=== PATIENT | male | born 1965 | race African-American/Black ===

== ENCOUNTER 2017-10-24 18:37 | Emergency (ER) | payer MEDICAID ==
[~2017-10-24] VITALS: Ht 177.8 cm; Wt 74.8 kg
[~2017-10-24 18:37] MED LIST: BENA20TA9; DIPH50CA37; HYDR12.5
--- NOTE | 2017-10-24 18:50 | NUR ---
PT AMBULATORY TO ER BED 13 WAS SENT BY [facility]RGENT [facility]ARE FOR POSSIBLE DIVERTICULITIS. C/O LLQ ABDOMINAL PAIN X 1 WEEK. DENIES N/V/D. PLACED ON MONITOR. AWAITING MD MOSELEY.
--- NOTE | 2017-10-24 19:08 | NUR ---
KATHY COON AT BEDSIDE FOR EVAL.
--- NOTE | 2017-10-24 19:17 | NUR ---
IV LINE STARTED BLOOD DRAWN AND SENT TO LAB.
[2017-10-24 19:23] LABS: BASOPHILS % (AUTO) 0.8 % (0.0-2.0); EOSINOPHILS % (AUTO) 1.5 % (0.0-6.0); HEMATOCRIT 49 % (39-51); HEMOGLOBIN 16.4 g/dL (13.5-17.5); LYMPHOCYTES # (AUTO) 2.6 /CMM (0.8-4.8); LYMPHOCYTES % (AUTO) 47.6 % (20.0-44.0); MEAN CORPUSCULAR HEMOGLOBIN 29 PG (26.0-33.0); MEAN CORPUSCULAR HGB CONC 33 g/dl (31.0-36.0); MEAN CORPUSCULAR VOLUME 87 fL (80-96); MONOCYTES # (AUTO) 0.5 /CMM (0.1-1.30); MONOCYTES % (AUTO) 10.4 % (2.0-12.0); NEUTROPHILS # (AUTO) 2.1 /CMM (1.8-8.9); NEUTROPHILS % (AUTO) 39.7 % (43.0-81.0); PLATELET COUNT (AUTO) 203 /CMM (150-450); RDW COEFFICIENT OF VARIATION 12.8 (11.5-15.0); RED BLOOD CELL COUNT(AUTO) 5.69 MIL/uL (4.5-6.0); WHITE BLOOD COUNT (AUTO) 5.3 K/uL (4.3-11.0)
[2017-10-24] MEDS ORDERED: IV NS 0.9% 1,000 ML BAG IV ONE ×2 (19:30→20:00)
[2017-10-24 19:32] LABS: CALCIUM, SERUM 9.5 mg/dL (8.5-10.1); CREATININE 1.4 mg/dL (0.6-1.3); POTASSIUM 3.3 mmol/L (3.5-5.1)
[2017-10-24 19:38] LABS: ALBUMIN 3.9 g/dL (3.4-5.0); BILIRUBIN,DIRECT 0.2 mg/dL (0.0-0.2); BILIRUBIN,TOTAL 0.8 mg/dL (0.2-1.0)
[2017-10-24] MEDS ORDERED: IOHEXOL-300 100 ML VIAL IV ONE (19:47)
[2017-10-24 19:49] LABS: APPEARANCE,URINE Clear (CLEAR); BILIRUBIN,URINE Negative (NEGATIVE); BLOOD, URINE Negative Ery/uL (NEGATIVE); COLOR,URINE Yellow (YELLOW); KETONES,URINE Negative (NEGATIVE); LEUKOCYTE ESTERASE ,URINE Negative (NEGATIVE); NITRITE, URINE Negative (NEGATIVE); PROTEIN,URINE Negative (NEGATIVE); UGLUCOSE Negative (NEGATIVE); UROBILINOGEN,URINE 0.2 EU/dL (0.2)
--- NOTE | 2017-10-24 21:41 | NUR ---
Patient discharged to home in stable condition. Written and verbal after care instructions given. Patient verbalizes understanding of instruction.Patient discharged to home in stable condition. Written and verbal after care instructions given. Patient verbalizes understanding of instruction.
[2017-10-24 21:42] VITALS: BP 121/77
== END 2017-10-24 21:42 | disposition home or self-care (01) ==
LOC: ER 18:40
DX: K59.09 Other constipation (principal); I10 Essential (primary) hypertension; G89.29 Other chronic pain
CPT/HCPCS: 36415; 80048-TC; 80076-TC; 81000-TC; 83690-TC; 85025-TC; A4606; J7030; Q9967; Z7610

== ENCOUNTER 2017-12-29 14:45 | Emergency (ER) | payer MEDICAID ==
[~2017-12-29] VITALS: Ht 177.8 cm; Wt 74.8 kg
[2017-12-29 15:27] LABS: BASOPHILS # (AUTO) 0.1 /CMM (0.0-0.2); EOSINOPHILS % (AUTO) 1.7 % (0.0-6.0); HEMATOCRIT 46 % (39-51); HEMOGLOBIN 14.9 g/dL (13.5-17.5); LYMPHOCYTES # (AUTO) 1.8 /CMM (0.8-4.8); MEAN CORPUSCULAR HEMOGLOBIN 29 PG (26.0-33.0); MEAN CORPUSCULAR HGB CONC 33 g/dl (31.0-36.0); MEAN CORPUSCULAR VOLUME 88 fL (80-96); MONOCYTES # (AUTO) 0.4 /CMM (0.1-1.30); NEUTROPHILS # (AUTO) 2.7 /CMM (1.8-8.9); NEUTROPHILS % (AUTO) 53.3 % (43.0-81.0); PLATELET COUNT (AUTO) 232 /CMM (150-450); RDW COEFFICIENT OF VARIATION 13.3 (11.5-15.0); RED BLOOD CELL COUNT(AUTO) 5.21 MIL/uL (4.5-6.0); WHITE BLOOD COUNT (AUTO) 5.1 K/uL (4.3-11.0)
[2017-12-29 15:35] LABS: CALCIUM, SERUM 8.4 mg/dL (8.5-10.1); CARBON DIOXIDE 35 mmol/L (21-32); CHLORIDE 103 mmol/L (98-107); CREATININE 1.1 mg/dL (0.6-1.3); GLUCOSE 115 mg/dL (74-106); POTASSIUM 3.2 mmol/L (3.5-5.1); SODIUM SERUM 137 mmol/L (136-145); UREA NITROGEN, BLOOD 15 mg/dL (7-18)
[2017-12-29 15:43] LABS: TROPONIN I < 0.017 ng/mL (0.00-0.056)
[2017-12-29 15:47] LABS: ALANINE AMINOTRANSFERASE 30 U/L (12-78); ALBUMIN 3.3 g/dL (3.4-5.0); ALKALINE PHOSPHATASE 54 U/L (46-116); ASPARTATE AMINOTRANSFERASE 20 U/L (15-37); BILIRUBIN,DIRECT 0.1 mg/dL (0.0-0.2); BILIRUBIN,TOTAL 0.5 mg/dL (0.2-1.0); LIPASE 142 U/L (73-393); TOTAL PROTEIN, SERUM 5.9 g/dL (6.4-8.2)
[2017-12-29 16:52] VITALS: BP 110/78
--- NOTE | 2017-12-29 16:52 | NUR ---
Patient discharged to home in stable condition. Written and verbal after care instructions given. Patient verbalizes understanding of instruction.
== END 2017-12-29 16:53 | disposition home or self-care (01) ==
LOC: ER 14:48
DX: R10.13 Epigastric pain (principal); R42 Dizziness and giddiness; I10 Essential (primary) hypertension; G89.29 Other chronic pain; Z87.891 Personal history of nicotine dependence
CPT/HCPCS: 36415; 71045; 80048; 80076; 83690; 84484; 85025; 93005; 99285; A4606; Z7610

== ENCOUNTER 2018-04-30 14:23 | Emergency (ER) | payer MEDICAID ==
[~2018-04-30] VITALS: Ht 177.8 cm; Wt 73.9 kg
--- NOTE | 2018-04-30 14:35 | NUR ---
PT BIB SELF C/O Abdominal/epigastric pain "started couple days ago. Hx hernia surg 1mo ago", PT IS AAOX4, NOT IN RESPIRATORY DISTRESS, V/S STABLE, KEPT RESTED AND COMFORTABLE.
--- NOTE | 2018-04-30 14:49 | NUR ---
LABS DRAWNED AND SENT TO LAB. AWAITING RESULTS.
[2018-04-30] MEDS ORDERED: MORPHINE SULFATE INJ 2 MG/ML DISP.SYRIN IV ONE (15:00)
[2018-04-30] MEDS ORDERED: FAMOTIDINE/PF INJ 20 MG/2 ML VIAL IV ONE ×2 (15:00→15:09)
[2018-04-30] MEDS ORDERED: PANTOPRAZOLE 40 MG VIAL IV ONE (15:00)
[2018-04-30] MEDS ORDERED: ONDANSETRON HCL/PF 4 MG/2 ML VIAL IVP ONE (15:00)
[2018-04-30] MEDS ORDERED: IV NS 0.9% 1,000 ML BAG IV ONE (15:00)
[2018-04-30] MEDS ORDERED: MAG HYDROX/AL HYDROX/SIMETH 30 ML UDC PO ONE (15:00)
[2018-04-30 15:06] LABS: BASOPHILS % (AUTO) 0.4 % (0.0-2.0); EOSINOPHILS % (AUTO) 0.3 % (0.0-6.0); HEMATOCRIT 51 % (39-51); HEMOGLOBIN 16.9 g/dL (13.5-17.5); LYMPHOCYTES % (AUTO) 29.9 % (20.0-44.0); MEAN CORPUSCULAR HGB CONC 33 g/dl (31.0-36.0); MEAN CORPUSCULAR VOLUME 88 fL (80-96); MONOCYTES # (AUTO) 0.9 /CMM (0.1-1.30); MONOCYTES % (AUTO) 9.4 % (2.0-12.0); PLATELET COUNT (AUTO) 263 /CMM (150-450); RED BLOOD CELL COUNT(AUTO) 5.85 MIL/uL (4.5-6.0); WHITE BLOOD COUNT (AUTO) 9.9 K/uL (4.3-11.0)
[2018-04-30] MEDS ORDERED: ONDANSETRON HCL/PF 4 MG/2 ML VIAL ONE (15:08)
[2018-04-30] MEDS ORDERED: MAG HYDROX/AL HYDROX/SIMETH 30 ML UDC ONE (15:08)
[2018-04-30] MEDS ORDERED: PANTOPRAZOLE 40 MG VIAL ONE (15:08)
[2018-04-30] MEDS ORDERED: FENTANYL PF 100MCG/2ML AMPUL ONE ×2 (15:15→17:13)
[2018-04-30 15:29] LABS: CALCIUM, SERUM 9.5 mg/dL (8.5-10.1); CREATININE 1.1 mg/dL (0.6-1.3)
[2018-04-30] MEDS ORDERED: FENTANYL PF 100MCG/2ML AMPUL IV ONE ×2 (15:30→17:30)
[2018-04-30 15:34] LABS: ALBUMIN 3.9 g/dL (3.4-5.0); BILIRUBIN,DIRECT 0.1 mg/dL (0.0-0.2); BILIRUBIN,TOTAL 0.7 mg/dL (0.2-1.0); TOTAL PROTEIN, SERUM 7.4 g/dL (6.4-8.2)
[2018-04-30] MEDS ORDERED: IOHEXOL-300 100 ML VIAL IV ONE (15:47)
[2018-04-30] MEDS ORDERED: CT SWABBABLE VALVE TRANS SET 1 EA INFUS.SET MC ONE (15:47)
[2018-04-30] MEDS ORDERED: IV NS 0.9% 250 ML IV ONE (15:47)
[2018-04-30 16:19] LABS: APPEARANCE,URINE Clear (CLEAR); BILIRUBIN,URINE Negative (NEGATIVE); BLOOD, URINE Negative Ery/uL (NEGATIVE); COLOR,URINE Yellow (YELLOW); KETONES,URINE Negative (NEGATIVE); LEUKOCYTE ESTERASE ,URINE Negative (NEGATIVE); NITRITE, URINE Negative (NEGATIVE); PH,URINE 8.5 (5.0-8.0); PROTEIN,URINE 30 mg/dl (NEGATIVE); UGLUCOSE Negative (NEGATIVE); UROBILINOGEN,URINE 0.2 EU/dL (0.2)
[2018-04-30 16:28] LABS: RBC,URINE 0-2 /HPF (0-2); WBC,URINE 0-2 /HPF (0-3)
[2018-04-30 16:29] LABS: BACTERIA,URINE None seen /HPF (None Seen); SQUAMOUS EPITHELIAL CELL,UR Few /HPF (None Seen)
[2018-04-30] MEDS ORDERED: FERROUS SULFATE UDC 300 MG/5 ML UDC ONE (17:12)
[2018-04-30 17:51] VITALS: BP 135/87
== END 2018-04-30 17:52 | disposition home or self-care (01) ==
LOC: ER 14:27
DX: K29.70 Gastritis, unspecified, without bleeding (principal); E87.6 Hypokalemia; I10 Essential (primary) hypertension; Z98.890 Other specified postprocedural states; Z87.891 Personal history of nicotine dependence; Z79.899 Other long term (current) drug therapy
CPT/HCPCS: 36415; 74177; 80048; 80076; 81001; 83690; 85025; 85730; 96361; 96374; 96375; 96376; 99284; A4606; C9113; J2405; J3010 ×2; J3490; J7030; J7050; Q9967; Z7610; 81000-TC

== ENCOUNTER 2022-07-21 18:27 | Emergency (ER) | payer MEDICAID, OTHER ==
[~2022-07-21] VITALS: Ht 177.8 cm; Wt 79.4 kg
--- NOTE | 2022-07-21 18:50 | NUR ---
Patient AOx4 able to express his concerns. Patient with no signs of distress or discomfort. Discussed plan of care, pt verbalized agreement. Will continue to monitor throughout shift.
--- NOTE | 2022-07-21 19:15 | NUR ---
PT TRANSPORTED TO CT, ACCOMPANIED BY TECH
--- NOTE | 2022-07-21 19:27 | NUR ---
Handoff report given to Renee ROB. for continuity of care.
[2022-07-21 19:35] LABS: CALCIUM, SERUM 8.8 mg/dL (8.5-10.1); CREATININE 1.3 mg/dL (0.6-1.3); POTASSIUM 3.4 mmol/L (3.5-5.1)
--- NOTE | 2022-07-21 19:40 | NUR ---
PT RETURNED FROM CT, IN STABLE CONDITION
[2022-07-21 19:41] LABS: ALBUMIN 3.8 g/dL (3.4-5.0); BILIRUBIN,DIRECT 0.1 mg/dL (0.0-0.2); BILIRUBIN,TOTAL 0.7 mg/dL (0.2-1.0); TOTAL PROTEIN, SERUM 6.8 g/dL (6.4-8.2)
[2022-07-21 19:49] LABS: BASOPHILS % (AUTO) 0.2 % (0.0-2.0); HEMATOCRIT 49 % (39-51); HEMOGLOBIN 16.1 g/dL (13.5-17.5); LYMPHOCYTES # (AUTO) 0.9 K/uL (0.8-4.8); LYMPHOCYTES % (AUTO) 18.5 % (20.0-44.0); MEAN CORPUSCULAR HGB CONC 33 g/dl (31.0-36.0); MEAN CORPUSCULAR VOLUME 87 fL (80-96); MONOCYTES # (AUTO) 0.1 K/uL (0.1-1.30); MONOCYTES % (AUTO) 2.7 % (2.0-12.0); NEUTROPHILS # (AUTO) 3.6 K/uL (1.8-8.9); NEUTROPHILS % (AUTO) 78.6 % (43.0-81.0); PLATELET COUNT (AUTO) 254 K/uL (150-450); RED BLOOD CELL COUNT(AUTO) 5.68 MIL/uL (4.5-6.0); WHITE BLOOD COUNT (AUTO) 4.6 K/uL (4.3-11.0)
--- NOTE | 2022-07-21 20:09 | NUR ---
MD AT BEDSIDE FOR UPDATES
[2022-07-21] MEDS ORDERED: OMEP40CA21 PO (20:10)
[2022-07-21] MEDS ORDERED: DOCU-141 PO (20:10)
--- NOTE | 2022-07-21 20:15 | NUR ---
Patient discharged to home in stable condition. Written and verbal after care instructions given. Patient verbalizes understanding of instruction.
[2022-07-21 20:22] LABS: BILIRUBIN,URINE NEGATIVE (NEGATIVE); COLOR,URINE YELLOW (YELLOW); LEUKOCYTE ESTERASE ,URINE NEGATIVE (NEGATIVE); NITRITE, URINE NEGATIVE (NEGATIVE); PROTEIN,URINE 1+ mg/dl (NEGATIVE); UGLUCOSE NEGATIVE (NEGATIVE)
[2022-07-21 20:33] VITALS: BP 125/75
[2022-07-21 22:19] LABS: RBC,URINE 0-2 /HPF (0-2)
[2022-07-21 22:20] LABS: BACTERIA,URINE None seen /HPF (None Seen); MUCUS,URINE Few /LPF (None Seen); SQUAMOUS EPITHELIAL CELL,UR 0-2 /HPF (None Seen); WBC,URINE 0-2 /HPF (0-3)
== END 2022-07-21 20:15 | disposition home or self-care (01) ==
LOC: ER 18:33
DX: R10.32 Left lower quadrant pain (principal); I10 Essential (primary) hypertension; Z79.899 Other long term (current) drug therapy
CPT/HCPCS: 36415; 80048-TC; 80076-TC; 81001; 83690-TC; 85025-TC

== ENCOUNTER 2022-08-04 17:15 | Emergency (ER) | payer OTHER ==
[~2022-08-04] VITALS: Ht 177.8 cm; Wt 77.1 kg
[~2022-08-04 17:15] MED LIST changes: +DOCU-141 PO; +OMEP40CA21 PO
[2022-08-04 18:31] LABS: BASOPHILS % (AUTO) 0.6 % (0.0-2.0); EOSINOPHILS % (AUTO) 1.2 % (0.0-6.0); HEMATOCRIT 51 % (39-51); HEMOGLOBIN 16.2 g/dL (13.5-17.5); LYMPHOCYTES # (AUTO) 1.7 K/uL (0.8-4.8); LYMPHOCYTES % (AUTO) 25.4 % (20.0-44.0); MEAN CORPUSCULAR HGB CONC 32 g/dl (31.0-36.0); MEAN CORPUSCULAR VOLUME 88 fL (80-96); MONOCYTES # (AUTO) 0.4 K/uL (0.1-1.30); MONOCYTES % (AUTO) 6.1 % (2.0-12.0); NEUTROPHILS # (AUTO) 4.4 K/uL (1.8-8.9); NEUTROPHILS % (AUTO) 66.7 % (43.0-81.0); PLATELET COUNT (AUTO) 216 K/uL (150-450); RED BLOOD CELL COUNT(AUTO) 5.76 MIL/uL (4.5-6.0); WHITE BLOOD COUNT (AUTO) 6.7 K/uL (4.3-11.0)
[2022-08-04 18:49] LABS: CALCIUM, SERUM 9.3 mg/dL (8.5-10.1); CREATININE 1.3 mg/dL (0.6-1.3); POTASSIUM 3.6 mmol/L (3.5-5.1)
[2022-08-04 18:55] LABS: BILIRUBIN,DIRECT 0.2 mg/dL (0.0-0.2)
--- NOTE | 2022-08-04 19:30 | NUR ---
URINE SPECIMEN SENT TO LAB
--- NOTE | 2022-08-04 19:32 | NUR ---
RECEIVED PT IN BED, LYING, AAOX4. ABLE TO MAKE NEEDS KNOWN. CAME AT AROUND 18OO FROM HOME WITH C/O HEMATURIA AND PAIN ON URINATION ALMOST 3 HOURS AGO. LABS, URINALYSIS AND CT SCAN DONE, AWAITS RESULTS
[2022-08-04 19:47] LABS: BILIRUBIN,URINE NEGATIVE (NEGATIVE); COLOR,URINE YELLOW (YELLOW); LEUKOCYTE ESTERASE ,URINE NEGATIVE (NEGATIVE); NITRITE, URINE NEGATIVE (NEGATIVE); PH,URINE 5.5 (5.0-8.0); PROTEIN,URINE NEGATIVE (NEGATIVE); UGLUCOSE NEGATIVE (NEGATIVE); UROBILINOGEN,URINE 0.2 EU/dL (0.2)
[2022-08-04 21:04] LABS: BACTERIA,URINE None seen /HPF (None Seen); SQUAMOUS EPITHELIAL CELL,UR 0-2 /HPF (None Seen); WBC,URINE 0-2 /HPF (0-3)
[2022-08-04] MEDS ORDERED: MAG355OR18 PO (21:49)
[2022-08-04] MEDS ORDERED: FAMO20TA8 PO (21:49)
--- NOTE | 2022-08-04 21:51 | NUR ---
Patient discharged to home in stable condition. Written and verbal after care instructions given. Patient verbalizes understanding of instruction.
[2022-08-04 21:52] VITALS: BP 121/71
== END 2022-08-04 21:52 | disposition home or self-care (01) ==
LOC: ER 17:19
DX: R31.9 Hematuria, unspecified (principal); I10 Essential (primary) hypertension; G89.29 Other chronic pain
CPT/HCPCS: 36415; 80048-TC; 80076-TC; 81001; 83690-TC; 85025-TC

== ENCOUNTER 2023-05-23 12:06 | Emergency (ER) | payer OTHER ==
[~2023-05-23] VITALS: Ht 177.8 cm; Wt 70.3 kg
[~2023-05-23 12:06] MED LIST changes: +FAMO20TA8 PO; +MAG355OR18 PO; +ZOLP10TA2 PO
[2023-05-23 12:16] VITALS: BP 135/80; TEMP 98; O2SAT 99
[2023-05-23] MEDS ORDERED: IBUP-1955 PO (13:17)
== END 2023-05-23 13:44 | disposition home or self-care (01) ==
LOC: ER 12:22
DX: S62.356A Nondisplaced fracture of shaft of fifth metacarpal bone, right hand, initial encounter for closed fracture (principal); I10 Essential (primary) hypertension; K21.9 Gastro-esophageal reflux disease without esophagitis; W18.30XA Fall on same level, unspecified, initial encounter; Y93.89 Activity, other specified; Y92.89 Other specified places as the place of occurrence of the external cause; Y99.8 Other external cause status
CPT/HCPCS: 73130-TC

== ENCOUNTER 2024-08-31 16:09 | Inpatient (IN) | payer OTHER ==
[~2024-08-31] VITALS: Ht 177.8 cm; Wt 73.0 kg
[~2024-08-31 16:09] MED LIST changes: +IBUP-1955 PO
[2024-08-31] MEDS ORDERED: CEFTRIAXONE 1GM BAG (ER ONLY) 50 ML IV ONE (17:02)
[2024-08-31] MEDS ORDERED: ACETAMINOPHEN ES 500 MG TABLET ONE (17:02)
[2024-08-31 17:05] LABS: BASOPHILS # (AUTO) 0.1 K/uL (0.0-0.2); BASOPHILS % (AUTO) 0.6 % (0.0-2.0); EOSINOPHILS # (AUTO) 0.1 K/uL (0.0-0.7); EOSINOPHILS % (AUTO) 0.7 % (0.0-6.0); HEMATOCRIT 48 % (39-51); LYMPHOCYTES # (AUTO) 1.7 K/uL (0.8-4.8); LYMPHOCYTES % (AUTO) 15.9 % (20.0-44.0); MEAN CORPUSCULAR HEMOGLOBIN 29 PG (26.0-33.0); MEAN CORPUSCULAR HGB CONC 33 g/dl (31.0-36.0); MEAN CORPUSCULAR VOLUME 86 fL (80-96); MONOCYTES # (AUTO) 1.1 K/uL (0.1-1.30); MONOCYTES % (AUTO) 10.4 % (2.0-12.0); NEUTROPHILS # (AUTO) 7.9 K/uL (1.8-8.9); NEUTROPHILS % (AUTO) 72.4 % (43.0-81.0); PLATELET COUNT (AUTO) 194 K/uL (150-450); RED BLOOD CELL COUNT(AUTO) 5.59 MIL/uL (4.5-6.0); RED CELL DISTRIBUTION WIDTH 14.4 % (11.5-15.0); WHITE BLOOD COUNT (AUTO) 10.9 K/uL (4.3-11.0)
[2024-08-31] MEDS: IV NS 0.9% 1,000 ML BAG IV ONE (17:20)
[2024-08-31] MEDS: CEFTRIAXONE 1 G in IV D5W 50 ML IV ONE (17:21)
[2024-08-31] MEDS: ACETAMINOPHEN ES 500 MG TABLET PO ONE (17:21)
[2024-08-31 17:22] LABS: INR 0.99 (0.91-1.10); PARTIAL THROMBOPLASTIN TIME 26.3 SEC (24.3-34.3); PROTHROMBIN TIME 10.2 SECS (9.2-11.1)
[2024-08-31 17:31] LABS: CALCIUM, SERUM 8.9 mg/dL (8.5-10.1); CARBON DIOXIDE 34 mmol/L (21-32); CHLORIDE 99 mmol/L (98-107); CREATININE 1.3 mg/dL (0.6-1.3); GLUCOSE 95 mg/dL (74-106); POTASSIUM 2.9 mmol/L (3.5-5.1); SODIUM SERUM 137 mmol/L (136-145); UREA NITROGEN, BLOOD 11 mg/dL (7-18)
[2024-08-31 17:36] LABS: ALANINE AMINOTRANSFERASE 22 U/L (12-78); ALBUMIN 3.3 g/dL (3.4-5.0); ALKALINE PHOSPHATASE 59 U/L (46-116); ASPARTATE AMINOTRANSFERASE 12 U/L (15-37); BILIRUBIN,DIRECT 0.2 mg/dL (0.0-0.2); TOTAL PROTEIN, SERUM 7.4 g/dL (6.4-8.2)
[2024-08-31 17:42] LABS: APPEARANCE,URINE CLEAR (CLEAR); BILIRUBIN,URINE Negative (NEGATIVE); BLOOD, URINE Negative Ery/uL (NEGATIVE); COLOR,URINE YELLOW (YELLOW); KETONES,URINE Trace mg/dL (NEGATIVE); LEUKOCYTE ESTERASE ,URINE Negative (NEGATIVE); PH,URINE 8.5 (5.0-8.0); PROTEIN,URINE 100 mg/dl (NEGATIVE); UGLUCOSE Negative (NEGATIVE)
[2024-08-31 17:50] LABS: NITRITE, URINE NEGATIVE (NEGATIVE)
[2024-08-31 17:51] LABS: ADD URINE CULTURE NO; BACTERIA,URINE None seen /HPF (None Seen); RBC,URINE 0-2 /HPF (0-2); SQUAMOUS EPITHELIAL CELL,UR None Seen /HPF (None Seen); WBC,URINE 0-2 /HPF (0-3)
[2024-08-31] MEDS ORDERED: IOHEXOL-350 100 ML VIAL IV ONE (18:11)
[2024-08-31] MEDS ORDERED: IV NS 0.9% 250 ML IV ONE (18:11)
[2024-08-31] MEDS ORDERED: BENA1TAB19 PO (18:27)
[2024-08-31] MEDS ORDERED: ZOLP10TA2 PO (18:27)
[2024-08-31] MEDS: ALBUTEROL FS 2.5 MG/3 ML VIAL.NEB NEB ONE (19:00)
[2024-08-31 19:01] VITALS: O2SAT 94
[2024-08-31] MEDS ORDERED: ALBUTEROL FS 2.5 MG/3 ML VIAL.NEB ONE (19:10)
[2024-08-31 19:16] VITALS: O2SAT 97
[2024-08-31] MEDS ORDERED: AZITHROMYCIN 250 MG TABLET ONE (19:59)
[2024-08-31] MEDS: AZITHROMYCIN 250 MG TABLET PO ONE (20:03)
[2024-08-31] MEDS ORDERED: ONDANSETRON HCL/PF 4 MG/2 ML VIAL IVP PRN (22:30)
[2024-08-31] MEDS ORDERED: MAG HYDROX/AL HYDROX/SIMETH 30 ML UDC PO PRN (22:30)
[2024-08-31] MEDS ORDERED: MAGNESIUM HYDROXIDE 30 ML UDC PO PRN (22:30)
[2024-08-31] MEDS ORDERED: ZOLPIDEM TARTRATE 5 MG TABLET PO PRN (22:30)
[2024-08-31] MEDS ORDERED: Z GUARD REMEDY 4 OZ OINT TP PRN (22:30)
[2024-08-31] MEDS: IV 1/2NS 1000 ML 1,000 ML IV PRN (22:33)
[2024-08-31] MEDS: ENOXAPARIN SODIUM 40 MG/0.4 ML DISP.SYRIN SQ SCH (22:35)
[2024-09-01] VITALS (8 sets, daily range): BP systolic 99–116; BP diastolic 64–83; TEMP 98.1–98.7; O2SAT 95–100
[2024-09-01] MEDS: GUAIFENESIN 300 MG/15 ML UDC PO PRN (00:32)
[2024-09-01] MEDS: POTASSIUM CHLORIDE 20 MEQ TAB.PRT.SR PO ONE (01:57)
[2024-09-01 07:39] LABS: BASOPHILS % (AUTO) 0.3 % (0.0-2.0); EOSINOPHILS # (AUTO) 0.2 K/uL (0.0-0.7); EOSINOPHILS % (AUTO) 1.6 % (0.0-6.0); HEMATOCRIT 43 % (39-51); HEMOGLOBIN 14.2 g/dL (13.5-17.5); LYMPHOCYTES # (AUTO) 1.9 K/uL (0.8-4.8); LYMPHOCYTES % (AUTO) 19.1 % (20.0-44.0); MEAN CORPUSCULAR HEMOGLOBIN 28 PG (26.0-33.0); MEAN CORPUSCULAR HGB CONC 33 g/dl (31.0-36.0); MEAN CORPUSCULAR VOLUME 86 fL (80-96); MONOCYTES % (AUTO) 10.2 % (2.0-12.0); NEUTROPHILS # (AUTO) 6.9 K/uL (1.8-8.9); NEUTROPHILS % (AUTO) 68.8 % (43.0-81.0); PLATELET COUNT (AUTO) 188 K/uL (150-450); RED BLOOD CELL COUNT(AUTO) 5.01 MIL/uL (4.5-6.0); RED CELL DISTRIBUTION WIDTH 14.2 % (11.5-15.0)
[2024-09-01] MEDS: PANTOPRAZOLE 40 MG TABLET.DR PO SCH (08:14)
[2024-09-01] MEDS: BENAZEPRIL HCL 20 MG TABLET PO SCH (08:40)
[2024-09-01] MEDS: HYDROCHLOROTHIAZIDE 25 MG TABLET PO SCH (08:40)
[2024-09-01 09:03] LABS: CALCIUM, SERUM 7.9 mg/dL (8.5-10.1); PHOSPHORUS 2.8 mg/dL (2.5-4.9); POTASSIUM 3.4 mmol/L (3.5-5.1)
[2024-09-01] MEDS: IPRATROPIUM NEB FS 0.5 MG/2.5 ML AMPUL.NEB NEB SCH (09:30)
[2024-09-01] MEDS: ALBUTEROL HALF STRENGTH 1.25 MG/3 ML VIAL.NEB NEB SCH (09:30)
[2024-09-01] MEDS: CEFTRIAXONE 1 G in IV D5W 50 ML IV SCH (16:38)
[2024-09-01] MEDS: AZITHROMYCIN 500 MG in IV D5W 250 ML IV SCH (20:30)
[2024-09-01] MEDS: ACETAMINOPHEN 325 MG TABLET PO PRN (20:55)
[2024-09-01] MEDS: ZOLPIDEM TARTRATE 10 MG TABLET PO SCH (22:40)
[2024-09-02] VITALS (11 sets, daily range): BP systolic 102–122; BP diastolic 65–80; TEMP 97.5–98.6; O2SAT 95–100
[2024-09-02 07:30] LABS: BASOPHILS % (AUTO) 0.5 % (0.0-2.0); EOSINOPHILS # (AUTO) 0.2 K/uL (0.0-0.7); EOSINOPHILS % (AUTO) 2.8 % (0.0-6.0); HEMATOCRIT 44 % (39-51); HEMOGLOBIN 14.3 g/dL (13.5-17.5); LYMPHOCYTES # (AUTO) 1.7 K/uL (0.8-4.8); LYMPHOCYTES % (AUTO) 21.7 % (20.0-44.0); MEAN CORPUSCULAR HEMOGLOBIN 28 PG (26.0-33.0); MEAN CORPUSCULAR HGB CONC 33 g/dl (31.0-36.0); MEAN CORPUSCULAR VOLUME 86 fL (80-96); MONOCYTES # (AUTO) 0.8 K/uL (0.1-1.30); MONOCYTES % (AUTO) 10.7 % (2.0-12.0); NEUTROPHILS % (AUTO) 64.3 % (43.0-81.0); PLATELET COUNT (AUTO) 235 K/uL (150-450); RED CELL DISTRIBUTION WIDTH 14.1 % (11.5-15.0); WHITE BLOOD COUNT (AUTO) 7.8 K/uL (4.3-11.0)
[2024-09-02 08:10] LABS: CALCIUM, SERUM 8.8 mg/dL (8.5-10.1); CREATININE 0.9 mg/dL (0.6-1.3); MAGNESIUM 2.2 mg/dL (1.8-2.4); PHOSPHORUS 3.2 mg/dL (2.5-4.9)
[2024-09-02 08:21] LABS: POTASSIUM 2.8 mmol/L (3.5-5.1)
[2024-09-02] MEDS: POTASSIUM CHLORIDE 20 MEQ TAB.PRT.SR PO SCH (09:30)
[2024-09-02] MEDS ORDERED: AZIT500T2 PO (13:31)
== END 2024-09-02 14:10 | disposition home or self-care (01) | DRG 139 ==
LOC: ER 16:19 → TELE1 19:45
PROVIDERS: ADMIT Student in an Organized Health Care Education/Training Program; ATTEND Nurse Practitioner Acute Care
DX: J15.9 Unspecified bacterial pneumonia (principal); J96.01 Acute respiratory failure with hypoxia; I10 Essential (primary) hypertension; K21.9 Gastro-esophageal reflux disease without esophagitis; J21.8 Acute bronchiolitis due to other specified organisms; Z20.822 Contact with and (suspected) exposure to COVID-19; M54.9 Dorsalgia, unspecified; G89.29 Other chronic pain; R68.84 Jaw pain; Z87.19 Personal history of other diseases of the digestive system; Z98.890 Other specified postprocedural states; Z79.899 Other long term (current) drug therapy; E87.6 Hypokalemia; Z87.828 Personal history of other (healed) physical injury and trauma; Z87.891 Personal history of nicotine dependence
CPT/HCPCS: 36415; 71045-TC; 80048-TC; 80076-TC; 81001; 83605-TC; 83735-TC; 83880; 84100-TC; 84484-TC; 85025-TC; 85730-TC; 87040-TC; 87086-TC; 94760-TC; 94799-TC; 97110-TC; 97116-TC; 97530-TC; A4223; G0378; J0456; J0696; J1650; J3490; J7030; J7050; J7060; Q9967

== ENCOUNTER 2024-10-03 11:59 | Emergency (ER) | payer OTHER ==
[~2024-10-03] VITALS: Ht 177.8 cm; Wt 74.8 kg
[~2024-10-03 11:59] MED LIST changes: +AZIT500T2 PO; +BENA1TAB19 PO; -BENA20TA9; -DIPH50CA37; -DOCU-141 PO; -FAMO20TA8 PO; -HYDR12.5; -IBUP-1955 PO; -MAG355OR18 PO; -OMEP40CA21 PO
[2024-10-03 12:12] VITALS: BP 115/66; TEMP 98.2; O2SAT 96
== END 2024-10-03 12:45 | disposition home or self-care (01) ==
LOC: ER 12:10
DX: D17.0 Benign lipomatous neoplasm of skin and subcutaneous tissue of head, face and neck (principal); I10 Essential (primary) hypertension; Z79.899 Other long term (current) drug therapy; Z87.891 Personal history of nicotine dependence

== ENCOUNTER 2025-04-04 13:50 | Emergency (ER) | payer OTHER ==
[~2025-04-04] VITALS: Ht 170.2 cm; Wt 74.8 kg
[2025-04-04 14:04] VITALS: TEMP 98.3
[2025-04-04 15:04] LABS: PLATELET COUNT (AUTO) 223 K/uL (150-450); RED BLOOD CELL COUNT(AUTO) 5.65 MIL/uL (4.5-6.0); RED CELL DISTRIBUTION WIDTH 15.0 % (11.5-15.0); WHITE BLOOD COUNT (AUTO) 6.0 K/uL (4.3-11.0)
[2025-04-04 15:13] LABS: CALCIUM, SERUM 8.4 mg/dL (8.5-10.1); CREATININE 1.1 mg/dL (0.6-1.3); SODIUM SERUM 142 mmol/L (136-145); UREA NITROGEN, BLOOD 17 mg/dL (7-18)
[2025-04-04] MEDS ORDERED: ALBUTEROL FS 2.5 MG/3 ML VIAL.NEB ONE (15:18)
[2025-04-04 15:20] VITALS: O2SAT 97
[2025-04-04] MEDS: ALBUTEROL FS 2.5 MG/3 ML VIAL.NEB NEB ONE (15:20)
[2025-04-04 15:30] VITALS: O2SAT 100
[2025-04-04] MEDS ORDERED: AZIT250T13 PO (16:02)
[2025-04-04] MEDS ORDERED: METH4TAB17 PO (16:02)
[2025-04-04] MEDS ORDERED: ALBU8.5H8 INH (16:02)
[2025-04-04] MEDS ORDERED: CETI-90 PO (16:02)
[2025-04-04] MEDS ORDERED: BENZ-13 PO (16:02)
[2025-04-04] MEDS ORDERED: FLUT16SP16 BNOSTRILS (16:02)
[2025-04-04] MEDS ORDERED: POTASSIUM CHLORIDE 20 MEQ TAB.PRT.SR PO ONE (16:09)
[2025-04-04] MEDS: POTASSIUM CHLORIDE 20 MEQ TAB.PRT.SR PO ONE (16:15)
[2025-04-04 16:18] VITALS: BP 125/78; O2SAT 100
== END 2025-04-04 16:15 | disposition home or self-care (01) ==
LOC: ER 13:57
DX: J06.9 Acute upper respiratory infection, unspecified (principal); E87.6 Hypokalemia; I11.9 Hypertensive heart disease without heart failure; G89.29 Other chronic pain; J45.909 Unspecified asthma, uncomplicated; R06.02 Shortness of breath; Z79.899 Other long term (current) drug therapy; Z87.891 Personal history of nicotine dependence; Z20.822 Contact with and (suspected) exposure to COVID-19
CPT/HCPCS: 99285; 71045; 87426; 93005; 87804 ×2; 85025; 80048; 85378; 36415; 84484; 83880; 94640; J7512